=== PATIENT | female | born 1965 | race Caucasian/White ===

== ENCOUNTER 2017-11-01 06:19 | Day surgery (SDC) | payer BC ==
[2017-10-28 16:38] LABS: BASOPHILS % (AUTO) 0.4 % (0-1); EOSINOPHILS % (AUTO) 0.6 % (0-6); LYMPHOCYTES # (AUTO) 2.4 X10'3 (1.1-4.8); LYMPHOCYTES % (AUTO) 28.2 % (21-51); MEAN CORPUSCULAR HEMOGLOBIN 30.1 PG (27.0-31.0); MEAN CORPUSCULAR HGB CONC 33.7 % (33.0-36.5); MEAN CORPUSCULAR VOLUME 89.4 FL (78-98); MEAN PLATELET VOLUME 7.8 FL (7.4-10.4); MONOCYTES # (AUTO) 0.4 X10'3 (0-0.9); MONOCYTES % (AUTO) 5.2 % (2-12); NEUTROPHILS # (AUTO) 5.5 X10'3 (1.8-7.7); NEUTROPHILS % (AUTO) 65.6 % (42-75); PRE OP HEMATOCRIT 46.9 % (35.0-45.0); PRE OP HEMOGLOBIN 15.8 g/dL (12.0-16.0); PRE OP PLATELET COUNT 323 X10'3 (140-440); RED BLOOD COUNT 5.24 X10'6 (4.20-5.60); RED CELL DISTRIBUTION WIDTH 13.2 % (11.5-14.5)
[2017-10-28 16:59] LABS: ALBUMIN 4.1 G/DL (3.4-5.0); ALKALINE PHOSPHATASE 69 IU/L (46-116); BLOOD UREA NITROGEN 21 MG/DL (7-18); BUN/CREATININE RATIO 19.8 (6.6-38.0); CALCIUM 9.6 MG/DL (8.5-10.1); CHLORIDE 105 MMOL/L (99-107); CREATININE 1.06 MG/DL (0.40-0.90); PRE OP ALT 43 U/L (30-65); PRE OP ANION GAP 7 (8-16); PRE OP AST 18 U/L (10-37); PRE OP BILIRUB, TOTAL 0.4 MG/DL (0.0-1.0); PRE OP GLUCOSE 94 MG/DL (70-104); PRE OP POTASSIUM 3.8 MMOL/L (3.4-5.1); PRE OP SODIUM 143 MMOL/L (135-145); TOTAL PROTEIN 8.3 G/DL (6.4-8.2); eGFR 54 ML/MIN
[2017-10-28 17:10] LABS: PRE OP PROTIME 9.4 SECONDS (9.0-12.0)
[2017-11-01] VITALS (18 sets, daily range): BP systolic 85–145; BP diastolic 36–90
[~2017-11-01] VITALS: Ht 165.1 cm; Wt 104.8 kg
[~2017-11-01 06:19] MED LIST: OLME1TAB21 PO; SERT50TA PO; ceFOXitin 2 GM ADDvantage bag 100 ML IV ONE; famotidine 20mg tablet PO ONE; ringers solution, lacted 1,000 ML IV SCH
[2017-11-01] MEDS ORDERED: LIDOcaine 1% (10mg/ml) 2ml vial ONE (06:26)
[2017-11-01] MEDS ORDERED: morphine 10mg/ml inj. ONE (06:51)
[2017-11-01] MEDS ORDERED: clindamycin phosphate 40gm vag cream ONE (06:51)
[2017-11-01] MEDS ORDERED: ceFAZolin 1000mg inj ONE (06:52)
[2017-11-01] MEDS ORDERED: BUPIVAcaine/PF 2.5 mg/ml (0.25%) 30ml vial ONE (06:52)
[2017-11-01] MEDS ORDERED: vasoPRESSIN 20 units/ml inj. ONE (06:52)
[2017-11-01] MEDS ORDERED: LIDOcaine 1% 30ml preserv. free vial ONE (06:52)
[2017-11-01] MEDS ORDERED: sevoflurane 250ml liquid IH ONE (08:12)
[2017-11-01] MEDS ORDERED: midazolam 2 mg/2 ml injection ONE (08:16)
[2017-11-01] MEDS ORDERED: fentaNYL /PF 50mcg/ml 5ml ampule ONE (08:16)
[2017-11-01] MEDS ORDERED: LIDOcaine 2% (20mg/ml) 5ml vial ONE (08:17)
[2017-11-01] MEDS ORDERED: rocuronium 10mg/ml inj IV ONE (08:17)
[2017-11-01] MEDS ORDERED: propofol inj 20 ML IV ONE (08:17)
[2017-11-01] MEDS ORDERED: dexamethasone sod phosphate 4mg/ml inj. ONE (08:18)
[2017-11-01] MEDS ORDERED: ondansetron/PF 4mg/2ml inj ONE (08:32)
[2017-11-01] MEDS ORDERED: ringers solution, lacted 1,000 ML IV SCH (09:09)
[2017-11-01] MEDS ORDERED: proCHLORperazine 10 MG/2 ml inj IV PRN (09:10)
[2017-11-01] MEDS ORDERED: morphine 2 MG/ML inj. syringe IV PRN ×2 (09:10)
[2017-11-01] MEDS ORDERED: meperidine/PF 50mg/ml syringe IV PRN ×3 (09:10)
[2017-11-01] MEDS ORDERED: ondansetron/PF 4mg/2ml inj IV PRN ×2 (09:10→10:40)
[2017-11-01] MEDS ORDERED: ketorolac trometh. 30mg/ml inj. ONE (10:22)
[2017-11-01] MEDS ORDERED: glycopyrrolate 0.2mg/ml inj ONE (10:31)
[2017-11-01] MEDS ORDERED: diphenhydrAMINE 50 mg/ml inj IV PRN (10:40)
[2017-11-01] MEDS ORDERED: temazepam 15mg capsule PO PRN (10:40)
[2017-11-01] MEDS ORDERED: normal saline 500ml IV soln 500 ML IV PRN (10:40)
[2017-11-01] MEDS ORDERED: magnesium hydroxide 30ml (MOM) UD suspension PO PRN (10:40)
[2017-11-01] MEDS ORDERED: naloxone 0.4 mg/ml inj IV PRN (10:40)
[2017-11-01] MEDS ORDERED: ketorolac trometh. 30mg/ml inj. IV PRN (10:40)
[2017-11-01] MEDS ORDERED: HYDROcodone/acetaminophen 5mg/325mg tablet PO PRN (10:40)
[2017-11-01] MEDS ORDERED: CADD PCA waste documentation MC PRN (10:40)
[2017-11-01] MEDS: morphine/NS 5 mg/ml CADD 50 ML IV SCH ×7 (11:16→23:00)
[2017-11-01] MEDS: ringers solution, lacted 1,000 ML IV SCH ×2 (13:02→20:07)
[2017-11-01] MEDS: simethicone 80mg chew tab PO SCH ×2 (13:39→17:45)
[2017-11-01] MEDS: docusate sod 100mg capsule PO SCH (20:07)
[2017-11-02] VITALS: BP 82/57
[2017-11-02] MEDS: morphine/NS 5 mg/ml CADD 50 ML IV SCH ×5 (01:00→09:00)
[2017-11-02] MEDS: ringers solution, lacted 1,000 ML IV SCH ×3 (02:36→18:36)
[2017-11-02 04:35] VITALS: BP 90/60
[2017-11-02 05:52] LABS: BASOPHILS % (AUTO) 0.3 % (0-1); EOSINOPHILS # (AUTO) 0.2 X10'3 (0-0.9); EOSINOPHILS % (AUTO) 1.4 % (0-6); HEMATOCRIT 37.6 % (35.0-45.0); HEMOGLOBIN 13.5 g/dl (12.0-16.0); LYMPHOCYTES # (AUTO) 1.5 X10'3 (1.1-4.8); LYMPHOCYTES % (AUTO) 11.8 % (21-51); MEAN CORPUSCULAR HGB CONC 35.8 % (33.0-36.5); MEAN CORPUSCULAR VOLUME 86.6 FL (78-98); MEAN PLATELET VOLUME 7.6 FL (7.4-10.4); MONOCYTES # (AUTO) 0.6 X10'3 (0-0.9); MONOCYTES % (AUTO) 4.6 % (2-12); NEUTROPHILS # (AUTO) 10.5 X10'3 (1.8-7.7); NEUTROPHILS % (AUTO) 81.9 % (42-75); PLATELET COUNT 268 X10'3 (140-440); RED BLOOD COUNT 4.34 X10'6 (4.20-5.60); WHITE BLOOD COUNT 12.8 X10'3 (4.5-11.0)
[2017-11-02 07:00] VITALS: BP 79/48
[2017-11-02] MEDS ORDERED: losartan 50mg tablet PO SCH (08:00)
[2017-11-02] MEDS ORDERED: HYDROchlorothiazide 12.5mg capsule PO SCH (08:00)
[2017-11-02] MEDS ORDERED: sertraline 50mg tablet PO SCH (08:00)
[2017-11-02] MEDS: simethicone 80mg chew tab PO SCH ×3 (09:21→17:24)
[2017-11-02] MEDS: docusate sod 100mg capsule PO SCH ×2 (09:21→19:38)
[2017-11-02 11:00] VITALS: BP 101/54
[2017-11-02] MEDS: HYDROcodone/acetaminophen 5mg/325mg tablet PO PRN ×2 (17:26→20:00)
[2017-11-02 18:30] VITALS: BP 103/64
== END 2017-11-02 20:01 | disposition home or self-care (01) ==
LOC: PAS 06:19 → SUR 3N 10:36 → PAS 11-02 15:25
PROVIDERS: ATTEND Specialist
DX: D25.1 Intramural leiomyoma of uterus (principal); N80.0 Endometriosis of uterus; N72 Inflammatory disease of cervix uteri; N88.8 Other specified noninflammatory disorders of cervix uteri; N76.1 Subacute and chronic vaginitis; K66.0 Peritoneal adhesions (postprocedural) (postinfection); F32.9 Major depressive disorder, single episode, unspecified; E66.9 Obesity, unspecified; K21.9 Gastro-esophageal reflux disease without esophagitis; I10 Essential (primary) hypertension; Z88.8 Allergy status to other drugs, medicaments and biological substances; Z91.048 Other nonmedicinal substance allergy status; Z68.38 Body mass index [BMI] 38.0-38.9, adult; Z98.51 Tubal ligation status; Z79.891 Long term (current) use of opiate analgesic; Z72.89 Other problems related to lifestyle; Z85.828 Personal history of other malignant neoplasm of skin; Z79.899 Other long term (current) drug therapy
CPT/HCPCS: 36415; 51992; 57240; 57268; 58552; 80053; 85025; 85610; 85730; 86885; 86900; 86901; 87070; A4315; A4355; C1771; J0690; J0694; J1100; J1885; J2001; J2175; J2250; J2270; J2405; J2704; J3010; J3490; J7030; J7120; 86870; 86902; 86905; A6250; A7000